=== PATIENT | female | born 1980 | race Caucasian/White ===

== ENCOUNTER 2018-07-06 08:52 | Emergency (ER) | payer OTHER ==
[~2018-07-06] VITALS: Ht 170.2 cm; Wt 56.7 kg
[2018-07-06 09:20] VITALS: BP 107/66
--- NOTE | 2018-07-06 09:35 | PHYS DOC ---
Past History Past Medical History: No Pertinent History Past Surgical History: Appendectomy, Alcohol Use: Occasionally Drug Use: None Adult General Chief Complaint Chief Complaint: LACERATION/AVULSION HPI HPI 37-year-old female presents with laceration of her left eyebrow. The patient was walking down the hallway at her child's school and she was looking away when she turned her head she ran into a wall. She hit the left side of her eyebrow on the corner and it cut her skin. She had some bleeding which was controlled with simple pressure. She presents for laceration repair. She denies getting knocked unconscious. She denies any other injuries. She has had no dizziness or headache. Review of Systems Review of Systems Constitutional: Denies fever or chills [] Eyes: Denies change in visual acuity, redness, or eye pain [] HENT: Denies nasal congestion or sore throat [] Respiratory: Denies cough or shortness of breath [] Cardiovascular: No additional information not addressed in HPI [] GI: Denies abdominal pain, nausea, vomiting, bloody stools or diarrhea [] : Denies dysuria or hematuria [] Musculoskeletal: Denies back pain or joint pain [] Integument: Laceration left eyebrow[] Neurologic: Denies headache, focal weakness or sensory changes [] Endocrine: Denies polyuria or polydipsia [] All other systems were reviewed and found to be within normal limits, except as documented in this note. Allergies Allergies Allergies Coded Allergies Type Severity Reaction Last Updated Verified No Known Drug Allergies 07/06/18 No Physical Exam Physical Exam Constitutional: Well developed, well nourished, no acute distress, non-toxic appearance. [] HENT: Normocephalic, atraumatic, bilateral external ears normal, oropharynx moist, no oral exudates, nose normal. [] Eyes: PERRLA, EOMI, conjunctiva normal, no discharge. [] Neck: Normal range of motion, no tenderness, supple, no stridor. [] Cardiovascular:Heart rate regular rhythm, no murmur [] Lungs & Thorax: Bilateral breath sounds clear to auscultation [] Abdomen: Bowel sounds normal, soft, no tenderness, no masses, no pulsatile masses. [] Skin: 1.5 cm linear laceration of the left eyebrow.[] Back: No tenderness, no CVA tenderness. [] Extremities: No tenderness, no cyanosis, no clubbing, ROM intact, no edema. [] Neurologic: Alert and oriented X 3, normal motor function, normal sensory function, no focal deficits noted. [] Psychologic: Affect normal, judgement normal, mood normal. [] Current Patient Data Vital Signs Vital Signs Date Time Temp Pulse Resp B/P (MAP) Pulse Ox O2 Delivery O2 Flow Rate FiO2 07/06/18 08:52 98.6 75 18 99 Room Air EKG EKG [] Radiology/Procedures Radiology/Procedures [] Course & Med Decision Making Course & Med Decision Making Pertinent Labs and Imaging studies reviewed. (See chart for details) The patient's laceration was repaired. See note below for more details. There were no complications. The patient had no other concerns or complaints. She is stable for discharge at this time. [] Dragon Disclaimer Dragon Disclaimer This electronic medical record was generated, in whole or in part, using a voice recognition dictation system. Laceration Repair Lac Repair Indication: [1.5 cm linear laceration of left eyebrow] Procedure: Verbal consent was obtained from the patient to repair the laceration of her left eyebrow with skin glue. The wound was thoroughly cleansed with saline. No foreign body found. I applied 2 layers of Dermabond skin glue to the full length of the wound. There was good skin approximation. Bleeding was controlled. Total repaired wound length: 1.5 cm. Other Items: None The patient tolerated the procedure well. Complications: None. Departure Departure: Impression: Primary Impression: Laceration of left eyebrow without complication Disposition: 01 HOME, SELF-CARE Condition: STABLE Patient Instructions: Laceration Care, Adult, [id number] PAGE ENCISO DO Jul 06, 2018 09:35
== END 2018-07-06 09:30 | disposition home or self-care (01) ==
LOC: ER 08:52
DX: S01.112A Laceration without foreign body of left eyelid and periocular area, initial encounter (principal); W22.01XA Walked into wall, initial encounter; Y93.01 Activity, walking, marching and hiking; Y92.218 Other school as the place of occurrence of the external cause; Y99.8 Other external cause status
CPT/HCPCS: 12011; 99283